=== PATIENT | female | born 1970 | race African-American/Black ===

== ENCOUNTER 2016-06-22 10:31 | Emergency (ER) | payer OTHER, SELFPAY ==
[2016-06-22] MEDS ORDERED: METHYLPRED SOD SUCC 125 MG/2 ML VIAL ONE (11:33)
== END 2016-06-22 12:19 | disposition home or self-care (01) ==
LOC: ER 10:31
DX: G56.01 Carpal tunnel syndrome, right upper limb (principal)
CPT/HCPCS: 96372